=== PATIENT | male | born 1985 | race Two or more races ===

== ENCOUNTER 2023-02-20 17:29 | Emergency (ER) | payer SELFPAY ==
[~2023-02-20] VITALS: Ht 185.4 cm; Wt 100.0 kg
[2023-02-20 18:16] VITALS: BP 149/88; PULSE 110; RESP 22; O2SAT 97
== END 2023-02-20 20:46 | disposition left against medical advice (07) ==
LOC: ER 17:29 → EDBD 17:29 → ER 20:46
DX: F10.90 Alcohol use, unspecified, uncomplicated (principal); Z53.21 Procedure and treatment not carried out due to patient leaving prior to being seen by health care provider; Y90.0 Blood alcohol level of less than 20 mg/100 ml

== ENCOUNTER 2023-02-21 15:45 | Emergency (ER) | payer SELFPAY ==
[2023-02-21] MEDS ORDERED: SODIUM CHLORIDE 0.9% 1,000 ML IVB ONE (16:00)
== END 2023-02-21 17:02 | disposition left against medical advice (07) ==
LOC: EDBD 15:45 → ER 15:45
DX: F10.129 Alcohol abuse with intoxication, unspecified (principal); Y90.0 Blood alcohol level of less than 20 mg/100 ml